=== PATIENT | male | born 1990 | race Caucasian/White ===

== ENCOUNTER 2018-03-28 18:05 | Emergency (ER) | payer MEDICARE, OTHER ==
[~2018-03-28] VITALS: Ht 188 cm; Wt 240.4 kg
[~2018-03-28 18:05] MED LIST: ALPR.5 PO; ALPR1 PO; AMLO10 PO; ANTIANXIETY; ARIP20; BUSP10 PO; Bactrim Ds Tab1 EACH PO; CLON.5 PO; CLON2 PO; DIPH50; HYDCHL50 PO; INVEGA PO; METPHE10; METPHE18ER; PROACE100 PO; SERT50; TRAZ100 PO; TRAZ50; XANAX PO; Zoloft25 MG PO
[2018-03-28] MEDS ORDERED: CRUTCH3 XX (20:44)
== END 2018-03-28 22:02 | disposition home or self-care (01) ==
LOC: ER 18:05
DX: M25.562 Pain in left knee (principal); Z88.8 Allergy status to other drugs, medicaments and biological substances; E66.9 Obesity, unspecified; F90.9 Attention-deficit hyperactivity disorder, unspecified type; F20.9 Schizophrenia, unspecified; F41.9 Anxiety disorder, unspecified; Z68.44 Body mass index [BMI] 60.0-69.9, adult
CPT/HCPCS: 29505; 73560-LT; 96372; 99283; J1885

== ENCOUNTER 2018-03-29 23:02 | Emergency (ER) | payer MEDICARE, OTHER ==
[~2018-03-29] VITALS: Ht 188 cm; Wt 249.5 kg
[~2018-03-29 23:02] MED LIST changes: +CRUTCH3 XX
== END 2018-03-30 00:40 | disposition home or self-care (01) ==
LOC: ER 23:02
DX: M79.605 Pain in left leg (principal); E66.01 Morbid (severe) obesity due to excess calories; Z88.8 Allergy status to other drugs, medicaments and biological substances
CPT/HCPCS: 96372; 99283; J1885

== ENCOUNTER 2018-03-30 17:10 | Observation (INO) | payer MEDICARE, OTHER ==
[~2018-03-30] VITALS: Ht 182.9 cm; Wt 272.2 kg
== END 2018-03-31 13:59 | disposition home or self-care (01) ==
LOC: ER 17:10 → EOR 17:11
DX: S80.02XA Contusion of left knee, initial encounter (principal); E66.01 Morbid (severe) obesity due to excess calories; R45.851 Suicidal ideations; F90.9 Attention-deficit hyperactivity disorder, unspecified type; F42.9 Obsessive-compulsive disorder, unspecified; F25.9 Schizoaffective disorder, unspecified; F41.9 Anxiety disorder, unspecified; Z79.899 Other long term (current) drug therapy; Z68.45 Body mass index [BMI] 70 or greater, adult; W19.XXXA Unspecified fall, initial encounter
CPT/HCPCS: 36415; 96360; 99285; G0378; J7030

== ENCOUNTER 2018-04-09 02:49 | Emergency (ER) | payer MEDICARE, OTHER ==
[~2018-04-09] VITALS: Ht 182.9 cm; Wt 249.5 kg
== END 2018-04-09 04:30 | disposition home or self-care (01) ==
LOC: ER 02:49
DX: S80.02XA Contusion of left knee, initial encounter (principal); E66.01 Morbid (severe) obesity due to excess calories; Z68.45 Body mass index [BMI] 70 or greater, adult; Z88.8 Allergy status to other drugs, medicaments and biological substances; X58.XXXA Exposure to other specified factors, initial encounter
CPT/HCPCS: 73560-LT

== ENCOUNTER 2018-04-20 02:09 | Emergency (ER) | payer MEDICARE, OTHER ==
[~2018-04-20] VITALS: Ht 188 cm; Wt 240.4 kg
[2018-04-20] MEDS ORDERED: Nystatin15 GM TOP (02:24)
== END 2018-04-20 02:51 | disposition home or self-care (01) ==
LOC: ER 02:09
DX: B37.2 Candidiasis of skin and nail (principal); Z88.8 Allergy status to other drugs, medicaments and biological substances; Z79.899 Other long term (current) drug therapy; F90.9 Attention-deficit hyperactivity disorder, unspecified type; F41.9 Anxiety disorder, unspecified
CPT/HCPCS: 99283

== ENCOUNTER 2018-06-12 14:46 | Emergency (ER) | payer MEDICARE, OTHER ==
[~2018-06-12] VITALS: Ht 188 cm; Wt 226.8 kg
[~2018-06-12 14:46] MED LIST changes: +Nystatin15 GM TOP
== END 2018-06-12 20:17 | disposition home or self-care (01) ==
LOC: ER 14:46
DX: M25.562 Pain in left knee (principal); G89.29 Other chronic pain; Z88.8 Allergy status to other drugs, medicaments and biological substances; E66.01 Morbid (severe) obesity due to excess calories; Z68.44 Body mass index [BMI] 60.0-69.9, adult
CPT/HCPCS: 99284

== ENCOUNTER 2020-11-27 19:23 | Emergency (ER) | payer MEDICARE, OTHER ==
[~2020-11-27] VITALS: Ht 185.4 cm; Wt 294.8 kg
[~2020-11-27 19:23] MED LIST changes: +ASPI81CH PO; +AZIT250 PO; +CEPH500 PO; +METO50 PO; +VISBIOME PO
[2020-11-27] MEDS ORDERED: METO50 PO (19:37)
[2020-11-27 20:00] LABS: BASOPHILS ABSOLUTE AUTO 0.02 K/mm3 (0.00-0.23); BASOPHILS PERCENT AUTO 0 % (0-2); EOSINOPHILS ABSOLUTE AUTO 0.31 K/mm3 (0.00-0.68); EOSINOPHILS PERCENT AUTO 3 % (0-6); Hematocrit 46.5 % (37.0-53.0); Hemoglobin 14.5 g/dL (13.5-17.5); IMMATURE GRAN ABSOLUTE AUTO 0.03 K/mm3 (0.00-0.10); IMMATURE GRAN PERCENT AUTO 0 % (0-1); LYMPHOCYTES PERCENT AUTO 21 % (21-46); MONOCYTES ABSOLUTE AUTO 0.86 K/mm3 (0.16-1.47); MONOCYTES PERCENT AUTO 8 % (4-13); Mean Corpuscular HGB 27.9 pg (26.0-34.0); Mean Corpuscular HGB Conc 31.2 g/dL (31.5-36.5); Mean Corpuscular Volume 89 fL (80-100); Mean Platelet Volume 12.1 fL (9.1-12.4); NEUTROPHILS PERCENT AUTO 68 % (41-73); Platelet Count 229 K/mm3 (150-400); RDW Coefficient Variation 13.4 % (11.7-14.2); RDW Standard Deviation 43.8 fL (35.1-46.3); White Blood Cell Count 10.62 K/mm3 (4.00-11.30)
[2020-11-27 20:28] LABS: Alanine Aminotransfer (ALT/SGP 29 U/L (12-78); Albumin, Blood 3.4 g/dL (3.4-5.0); Albumin/Globulin Ratio 0.8 (0.8-1.8); Alk Phos 94 U/L (50-136); Anion Gap 3 mmol/L (6-16); Aspartate Aminotrans (AST/SGOT 12 U/L (12-37); Bilirubin, Total 0.3 mg/dL (0.1-1.0); Blood Urea Nitrogen 13 mg/dL (8-24); Bun/Creatinine Ratio 16.7 (12.0-20.0); CO2, Blood 30 mmol/L (21-32); Calcium, Blood 9.1 mg/dL (8.5-10.1); Chloride, Blood 104 mmol/L (98-108); Creatinine, Blood 0.78 mg/dL (0.60-1.20); Globulin, Blood 4.4 g/dL (2.2-4.0); Glomerular Filtration Rate >60 (60-); Glucose, Blood 99 mg/dL (70-99); Potassium, Blood 4.1 mmol/L (3.5-5.5); Sodium, Blood 137 mmol/L (136-145); Total Protein, Blood 7.8 g/dL (6.4-8.2); Troponin I <0.015 ng/mL (0.000-0.040)
== END 2020-11-27 22:26 | disposition home or self-care (01) ==
LOC: ER 19:23
PROVIDERS: Student in an Organized Health Care Education/Training Program
DX: R07.9 Chest pain, unspecified (principal); Z88.8 Allergy status to other drugs, medicaments and biological substances; Z79.82 Long term (current) use of aspirin
CPT/HCPCS: 36415; 71045; 80053; 84484; 85025; 99285-25; A9270

== ENCOUNTER 2025-02-17 18:07 | Inpatient (IN) | payer MEDICARE, OTHER ==
[~2025-02-17] VITALS: Ht 185.4 cm; Wt 305.3 kg
[2025-02-17] MEDS ORDERED: Acetaminophen650 M1 (18:28)
[2025-02-17] MEDS ORDERED: Lactated Ringer's 1,000 ML IV ONE (18:35)
[2025-02-17] MEDS ORDERED: Acetaminophen 500 MG Tab PO ONE (18:40)
[2025-02-17 19:01] LABS: BASOPHILS ABSOLUTE AUTO 0.03 K/mm3 (0.00-0.23); BASOPHILS PERCENT AUTO 0 % (0-2); EOSINOPHILS ABSOLUTE AUTO 0.01 K/mm3 (0.00-0.68); EOSINOPHILS PERCENT AUTO 0 % (0-6); Hematocrit 43.4 % (37.0-53.0); IMMATURE GRAN PERCENT AUTO 1 % (0-1); LYMPHOCYTES ABSOLUTE AUTO 0.42 K/mm3 (0.84-5.20); LYMPHOCYTES PERCENT AUTO 2 % (21-46); MONOCYTES ABSOLUTE AUTO 0.55 K/mm3 (0.16-1.47); MONOCYTES PERCENT AUTO 3 % (4-13); Mean Corpuscular HGB 27.1 pg (26.0-34.0); Mean Corpuscular HGB Conc 32.3 g/dL (31.5-36.5); Mean Corpuscular Volume 84 fL (80-100); NEUTROPHILS PERCENT AUTO 94 % (41-73); Platelet Count 225 K/mm3 (150-400); RDW Coefficient Variation 14.9 % (11.7-14.2); RDW Standard Deviation 45.4 fL (35.1-46.3); Red Blood Cell Count 5.17 M/mm3 (4.30-5.90); White Blood Cell Count 18.01 K/mm3 (4.00-11.30)
[2025-02-17 19:28] LABS: Albumin, Blood 3.5 g/dL (3.4-5.0); Albumin/Globulin Ratio 0.7 (0.8-1.8); Bilirubin, Total 0.8 mg/dL (0.1-1.0); Bun/Creatinine Ratio 21.7 (12.0-20.0); Calcium, Blood 8.9 mg/dL (8.5-10.1); Creatinine, Blood 0.69 mg/dL (0.60-1.20); Globulin, Blood 4.7 g/dL (2.2-4.0); Potassium, Blood 3.4 mmol/L (3.5-5.5); Total Protein, Blood 8.2 g/dL (6.4-8.2)
[2025-02-17 19:37] LABS: Influenza A, PCR NEGATIVE (NEGATIVE); Influenza B, PCR NEGATIVE (NEGATIVE); Resp Syncytial Virus, PCR NEGATIVE (NEGATIVE); SARS-Cov-2 (COVID-19) PCR, MMC NEGATIVE (NEGATIVE)
[2025-02-17] MEDS ORDERED: CefTRIAXone Sodium 1,000 MG in NS 100 ML IV ONE (21:00)
[2025-02-17] MEDS ORDERED: Azithromycin 250 MG Tab PO ONE (21:00)
[2025-02-17] MEDS ORDERED: Acetaminophen 325 MG TABLET PO PRN (22:15)
[2025-02-17] MEDS ORDERED: NS 1,000 ML IV ONE (22:15)
[2025-02-17] MEDS ORDERED: Ondansetron HCl 2 MG / ML 2ML Vial IV PRN (22:15)
[2025-02-17 22:32] LABS: Source, Urine Clean Catch
[2025-02-17 22:42] LABS: Bilirubin, Urine Neg (Neg); Blood, Urine Neg (Neg); Glucose Qualitative, Urine Neg (Neg); Ketones, Urine 1+ (Neg); Leukocyte Esterase, Urine Neg (Neg); Nitrite, Urine Neg (Neg); Protein, Urine Neg (Neg); Specific Gravity, Urine 1.015 (1.003-1.022); Urobilinogen, Urine NORM (Normal)
[2025-02-17 22:45] LABS: Appearance, Urine Clear (Clear); Color, Urine Yellow (P-Yellow)
[2025-02-17] MEDS ORDERED: Enoxaparin 40 MG/0.4 ML SYR SC SCH (23:00)
[2025-02-17] MEDS ORDERED: MethylPREDNISolone Sod Succ 125 MG Vial IV SCH (23:00)
[2025-02-17] MEDS ORDERED: Potassium Chloride 40 MEQ in NS 250 ML IV ONE (23:20)
[2025-02-18] VITALS (7 sets, daily range): BP systolic 135–152; BP diastolic 51–88
[2025-02-18 02:29] LABS: Hematocrit 40.9 % (37.0-53.0); Hemoglobin 13.2 g/dL (13.5-17.5); Mean Corpuscular HGB Conc 32.3 g/dL (31.5-36.5); Mean Corpuscular Volume 84 fL (80-100); Mean Platelet Volume 11.5 fL (9.1-12.4); Platelet Count 196 K/mm3 (150-400); RDW Coefficient Variation 15.3 % (11.7-14.2); RDW Standard Deviation 46.7 fL (35.1-46.3); Red Blood Cell Count 4.88 M/mm3 (4.30-5.90); White Blood Cell Count 24.25 K/mm3 (4.00-11.30)
[2025-02-18 02:51] LABS: BAND PERCENT MAN 20 % (0-8); BASOPHILS PERCENT MAN 0 % (0-2); EOSINOPHILS PERCENT MAN 0 % (0-6); LYMPHOCYTES ABSOLUTE MAN 0.97 K/mm3 (0.84-5.20); LYMPHOCYTES PERCENT MAN 4 % (21-46); MONOCYTES ABSOLUTE MAN 0.24 K/mm3 (0.16-1.47); MONOCYTES PERCENT MAN 1 % (4-13); NEUTROPHILS ABSOLUTE MAN 23.03 K/mm3 (1.96-9.15); SEG NEUTROPHILS PERCENT MAN 75 % (41-73); TOTAL CELLS COUNTED 100
[2025-02-18 03:59] LABS: Albumin/Globulin Ratio 0.7 (0.8-1.8); Bilirubin, Total 0.7 mg/dL (0.1-1.0); Bun/Creatinine Ratio 17.5 (12.0-20.0); Calcium, Blood 8.6 mg/dL (8.5-10.1); Creatinine, Blood 0.86 mg/dL (0.60-1.20); Globulin, Blood 4.6 g/dL (2.2-4.0); Magnesium, Blood 1.6 mg/dL (1.6-2.4); Potassium, Blood 3.8 mmol/L (3.5-5.5); Total Protein, Blood 7.6 g/dL (6.4-8.2)
--- NOTE | 2025-02-18 04:58 | NUR ---
CARE NOTE PT ARRIVED VIA ED CART TO PCU ROOM 18 VIA ED CART.PT ABLE TO TRANFER SELF WITH ASSIST TO BARIATRIC BED.PT'S BODY PRODUCING MALODOROUS SMELL.PT STATES THAT HE HAS NOT BEEN ABLE TO BATH FOR A LONG TIME.PT'S CLOTHES DIRTY AND APPEARS TO HAVE NOT BEEN WASHED FOR A WHILE.PT GIVEN A COMPLETE BED BATH.SKIN ASSESSMENT COMPLETED.MULTIPLE MOISTURE INDUCED SKIN BREAKDOWN NOTED IN FOLDS OF BILATERAL LOWER EXTREMITIES (LEFT WORSE THAN RIGHT),ARMPITS ,BILATERAL GROINS,GLUTEAL CLEFT.AREAS CLEANED,PICTURES IN CHART.INTERDRY APPLIED TO THE AREAS TO KEEP THE AREAS DRY.NS INFUSING AT 75ML/HR,40MEQ OF KCL IN 250ML OF NS INFUSING AT 50ML/HR STARTED IN ED.SOCIAL WORK CONSULT PLACED TO HELP SET UP FOR HELP WITH CARE AT HOME.PT NEEDS A WOUND CONSULT ORDER.
[2025-02-18] MEDS ORDERED: NS 1,000 ML IV SCH (08:00)
[2025-02-18] MEDS ORDERED: Miconazole Nitrate 2% 85 GM PWD TOP SCH (09:00)
[2025-02-18 14:37] LABS: Adenovirus Not Detected (NOT DETECT); Bordetella pertussis Not Detected (NOT DETECT); Chlamydophila pneumoniae Not Detected (NOT DETECT); Coronavirus 229E Not Detected (NOT DETECT); Coronavirus HKU1 Not Detected (NOT DETECT); Coronavirus NL63 Not Detected (NOT DETECT); Coronavirus OC43 Not Detected (NOT DETECT); Human Metapneumovirus Not Detected (NOT DETECT); Human Rhinovirus/Enterovirus Not Detected (NOT DETECT); Influenza A/2009-H1 Not Detected (NOT DETECT); Influenza A/H1 Not Detected (NOT DETECT); Influenza A/H3 Not Detected (NOT DETECT); Influenza B Not Detected (NOT DETECT); Mycoplasma pneumoniae Not Detected (NOT DETECT); Parainfluenza Virus 1 Not Detected (NOT DETECT); Parainfluenza Virus 2 Not Detected (NOT DETECT); Parainfluenza Virus 3 Not Detected (NOT DETECT); Parainfluenza Virus 4 Not Detected (NOT DETECT); Respiratory Syncytial Virus Not Detected (NOT DETECT); SARS-Cov-2 (COVID-19), BioFire Not Detected (NOT DETECT)
--- NOTE | 2025-02-18 17:36 | NUR ---
SHIFT SUMMARY: A/O X4, PLEASANT AND COOPERATIVE WITH CARE, ANXIOUS AT BASELINE WITH DX OF ASPERGERS, SCHIZO, AND ADHD, ABLE TO COMMUNICATE NEEDS AND USE CALL LIGHT APPROPRIATELY. NSR WITH A BBB, HR 80'S, BLE +4 EDEMA/LYMPHEDEMA, PENDING LAB FOR FILARIASIS. LS CTA ON ANTERIOR ASPECT, WHEEZING NOTED ON POSTERIOR, PRODUCTIVE COUGH WITH THICK CLEAR SPUTUM, SAT >92% ON 2L O2 VIA NC, REFUSED CPAP FOR 02/17/25 NOC, MD BAKER EDUCATED PT ON BENEFITS OF CPAP AND COMPLICATIONS FOR REFUSING, SPUTUM CULTURE NOT COLLECTED THIS SHIFT. USES URINAL IN BED, BODY HABITUS RESTRICTS MOVEMENT. SKIN BREAKDOWN IN ALL FOLDS, MEDICATED WITH NYSTATIN POWDER PER EMAR, AND PACKED WITH DRYING TOWELS.
[2025-02-18] MEDS ORDERED: CefTRIAXone Sodium 1,000 MG in NS 100 ML IV SCH (21:00)
[2025-02-18] MEDS ORDERED: Enoxaparin 40 MG/0.4 ML SYR SC SCH (21:00)
[2025-02-18] MEDS ORDERED: Azithromycin 500 MG in NS 250 ML IV SCH (21:00)
[2025-02-19 00:22] VITALS: BP 145/88
[2025-02-19 04:02] VITALS: BP 151/91
[2025-02-19] MEDS ORDERED: Benzonatate 100 MG Cap PO PRN (04:50)
--- NOTE | 2025-02-19 06:25 | NUR ---
PT STABLE THROUGHOUT SHIFT. VITAL SIGNS WNL. PT TOLERATING IV FLUIDS AND IV ABX WELL. PT C/O HACKING COUGH TOWARD END OF SHIFT AND TESSALON PERLES WERE ORDERED WITH GOOD EFFECT. PT SPUTUM IS CLEAR, THICK, AND MODERATE AMOUNT. PT DID HAVE A LARGE, FORMED, BROWN BM. FOLDS HAVE ANTIFUNGAL POWDER AND INTERDRY SHEETS IN PLACE. PT REMAINS IN SINUS RHYTHM.
[2025-02-19 07:45] LABS: BASOPHILS ABSOLUTE AUTO 0.02 K/mm3 (0.00-0.23); BASOPHILS PERCENT AUTO 0 % (0-2); EOSINOPHILS ABSOLUTE AUTO 0.05 K/mm3 (0.00-0.68); EOSINOPHILS PERCENT AUTO 0 % (0-6); Hematocrit 38.6 % (37.0-53.0); Hemoglobin 12.4 g/dL (13.5-17.5); IMMATURE GRAN ABSOLUTE AUTO 0.05 K/mm3 (0.00-0.10); IMMATURE GRAN PERCENT AUTO 0 % (0-1); LYMPHOCYTES ABSOLUTE AUTO 1.91 K/mm3 (0.84-5.20); LYMPHOCYTES PERCENT AUTO 13 % (21-46); MONOCYTES ABSOLUTE AUTO 0.66 K/mm3 (0.16-1.47); MONOCYTES PERCENT AUTO 5 % (4-13); Mean Corpuscular HGB 27.4 pg (26.0-34.0); Mean Corpuscular HGB Conc 32.1 g/dL (31.5-36.5); Mean Corpuscular Volume 85 fL (80-100); Mean Platelet Volume 12.1 fL (9.1-12.4); NEUTROPHILS ABSOLUTE AUTO 12.14 K/mm3 (1.96-9.15); NEUTROPHILS PERCENT AUTO 82 % (41-73); Platelet Count 175 K/mm3 (150-400); RDW Coefficient Variation 15.7 % (11.7-14.2); RDW Standard Deviation 48.3 fL (35.1-46.3); Red Blood Cell Count 4.53 M/mm3 (4.30-5.90); White Blood Cell Count 14.83 K/mm3 (4.00-11.30)
[2025-02-19 07:59] LABS: Albumin, Blood 2.7 g/dL (3.4-5.0); Albumin/Globulin Ratio 0.6 (0.8-1.8); Bilirubin, Total 0.3 mg/dL (0.1-1.0); Calcium, Blood 8.7 mg/dL (8.5-10.1); Creatinine, Blood 0.61 mg/dL (0.60-1.20); Globulin, Blood 4.5 g/dL (2.2-4.0); Total Protein, Blood 7.2 g/dL (6.4-8.2)
[2025-02-19 08:03] VITALS: BP 140/80
[2025-02-19 11:29] VITALS: BP 167/96
[2025-02-19] MEDS ORDERED: Lidocaine 2% Viscous Soln 20 ML,Nystatin 100,000 Unit/ml Susp 20 ML,Mag Hydrox/Al Hydro... MT PRN (12:05)
--- NOTE | 2025-02-19 13:37 | NUR ---
The pt has been alert and oriented this shift, cooperative with care and readily engaging in conversation about his care. He did request to see a psychiatrist as he feels that he needs to talk with someone about a multitude of issues regarding the loss of his mom and grandmother, anxiety, and isolation. Offer of senior analyst was made but the pt declined, saying he is primarily interested in getting medications to help him. Encouraged the pt to bring this up to his attending MD to make the referral. Pt has been OOB to BSC but says this afternoon that his BMs are starting to be diarrhea. The stools have progressed from soft to liquid. Bananas, apple sauce and dry crackers provided as well as extra p.o. fluids. He worked with PT as well today. continuous oximetry, no supplemental O2 needed.
[2025-02-19] MEDS ORDERED: ZINC OXIDE/PETROLATUM, YELLOW 1 APPLIC/71 GM PASTE TOP PRN (13:55)
[2025-02-19 15:19] VITALS: BP 145/82
--- NOTE | 2025-02-19 15:41 | NUR ---
Pt c/o headache, inablity to sleep due to chest soreness related to coughing. Given tylenol and tesslon perles at this time, as well as german ice he requested.
--- NOTE | 2025-02-19 18:27 | NUR ---
Pt states that he is feeling better. Headache is better, but he is having intermittent pain all over his chest. This seems to be associated with his coughing. He says that the tesslon perles helped his cough. He has also been having some hypoxia, spo2 86% occasionally, while lying in bed, often when he is falling asleep. He was placed on O2 2 l/min for this today when he was trying to nap. He has not been able to sleep today. Plan is for overnight oximetry reattempt this evening.
[2025-02-19 20:43] VITALS: BP 141/92
[2025-02-19] MEDS ORDERED: Lactobacil 2-S.Thermo-Bifido 1 1 Cap PO SCH (21:00)
[2025-02-20 01:04] VITALS: BP 149/83
--- NOTE | 2025-02-20 02:08 | NUR ---
PT TO BE TRANSFERRED TO MEDICAL ROOM 329. REPORT GIVEN TO TYLER CARNES.
--- NOTE | 2025-02-20 02:56 | NUR ---
PT TRANSFERRED WITH ALL BELONGINGS/PAPERWORK AND CHART.
--- NOTE | 2025-02-20 03:22 | NUR ---
SHIFT SUMMARY PATIENT HAS JUST TRANSFERED TO THE MEDICAL FLOOR FROM PCU. HE WAS ACCOMPANIED BY PIPE STEM ALIGNER, BOY WHO ALSO GAVE REPORT. PATIENT ARRIVED IN HIS BARIATRIC BED WITH HIS BELONGINGS. HE IS ALERT AND ORIENTED X4. HE HAS A COUGH. ORIENTED TO THE MEDICAL FLOOR. HE IS RESTING COMFORTABLY AT THIS TIME. HE HAS REQUESTED SOME TEA AND A SANDWHICH. HE HAS HIS CALL LIGHT WITHIN REACH AND HAS AGREED TO CALL WITH ANY REQUESTS OR NEEDS.
[2025-02-20 05:36] LABS: BASOPHILS ABSOLUTE AUTO 0.01 K/mm3 (0.00-0.23); BASOPHILS PERCENT AUTO 0 % (0-2); EOSINOPHILS ABSOLUTE AUTO 0.17 K/mm3 (0.00-0.68); EOSINOPHILS PERCENT AUTO 2 % (0-6); Hematocrit 37.4 % (37.0-53.0); IMMATURE GRAN ABSOLUTE AUTO 0.02 K/mm3 (0.00-0.10); IMMATURE GRAN PERCENT AUTO 0 % (0-1); LYMPHOCYTES PERCENT AUTO 22 % (21-46); MONOCYTES PERCENT AUTO 7 % (4-13); Mean Corpuscular HGB 27.1 pg (26.0-34.0); Mean Corpuscular HGB Conc 32.1 g/dL (31.5-36.5); Mean Corpuscular Volume 85 fL (80-100); Mean Platelet Volume 11.9 fL (9.1-12.4); NEUTROPHILS ABSOLUTE AUTO 6.51 K/mm3 (1.96-9.15); NEUTROPHILS PERCENT AUTO 68 % (41-73); Platelet Count 182 K/mm3 (150-400); RDW Coefficient Variation 15.6 % (11.7-14.2); RDW Standard Deviation 47.9 fL (35.1-46.3); Red Blood Cell Count 4.42 M/mm3 (4.30-5.90); White Blood Cell Count 9.51 K/mm3 (4.00-11.30)
[2025-02-20 05:57] LABS: Bun/Creatinine Ratio 19.9 (12.0-20.0); Calcium, Blood 8.8 mg/dL (8.5-10.1); Creatinine, Blood 0.6 mg/dL (0.60-1.20); Potassium, Blood 3.7 mmol/L (3.5-5.5)
[2025-02-20 07:50] VITALS: BP 160/100
[2025-02-20] MEDS ORDERED: Amoxicillin/Clavulanate K 875 MG Tab PO ONE (14:00)
[2025-02-20] MEDS ORDERED: Acetaminophen325 M1 PO (14:09)
[2025-02-20] MEDS ORDERED: BENZ100A PO (14:10)
[2025-02-20] MEDS ORDERED: VISBIOME 112.51 EACH PO (14:10)
[2025-02-20] MEDS ORDERED: MICONAZOLE NITR85 GM TOP (14:11)
[2025-02-20] MEDS ORDERED: AMOCLA875 PO (14:15)
--- NOTE | 2025-02-20 18:45 | NUR ---
SHIFT SUMMARY AND DISCHARGE PATIENT ALERT AND INTERACTIVE. PATIENT ABLE TO AMBULATE WITH MINIMAL ASSISTANCE. PATIENT DISCHARGE TO HOME. DISCHARGE INSTRUCTIONS REVIEWED WITH PATIENT. POWER GLIDE REMOVED PRIOR TO DISCHARGE. PATIENT ASSISTED TO GET DRESSED AND TRANSPORTED OUT VIA WHEELCHAIR. BELONGINGS SENT WITH PATIENT. ROOM CHECK VERIFIED WITH PATIENT PRIOR TO DISCHARGE.
== END 2025-02-20 15:40 | disposition home health service (06) | DRG 871 ==
LOC: ER 18:07 → ERHOLD 21:09 → PCU 21:09 → MEDS 02-20 02:44
PROVIDERS: Internal Medicine; Student in an Organized Health Care Education/Training Program; ADMIT Internal Medicine
DX: A41.9 Sepsis, unspecified organism (principal); J18.9 Pneumonia, unspecified organism; Z68.45 Body mass index [BMI] 70 or greater, adult; F84.5 Asperger's syndrome; I48.91 Unspecified atrial fibrillation; I10 Essential (primary) hypertension; I89.0 Lymphedema, not elsewhere classified; E66.01 Morbid (severe) obesity due to excess calories; B37.2 Candidiasis of skin and nail; G89.29 Other chronic pain; M54.50 Low back pain, unspecified; E87.6 Hypokalemia; F41.0 Panic disorder [episodic paroxysmal anxiety]; F90.9 Attention-deficit hyperactivity disorder, unspecified type; F25.9 Schizoaffective disorder, unspecified; Z88.8 Allergy status to other drugs, medicaments and biological substances; Z74.01 Bed confinement status
CPT/HCPCS: 0202U; 0241U; 36415; 71045; 80048; 80053; 81003; 83036; 83605; 83735; 83880; 84145; 85025; 87015; 87040; 87207; 87210; 94660; 94761; 94762; 96360; 97112; 97161; 97530; 99284-25; A9270; C1751; J0456; J0696; J1650; J2919; J3480; J7030; J7050; J7120

== ENCOUNTER 2025-05-10 00:51 | Inpatient (IN) | payer MEDICARE, OTHER ==
[~2025-05-10] VITALS: Ht 188 cm; Wt 311.7 kg
[2025-05-10] VITALS (8 sets, daily range): BP systolic 137–162; BP diastolic 70–91
[~2025-05-10 00:51] MED LIST changes: +AMOCLA875 PO; +Acetaminophen325 M1 PO; +Acetaminophen650 M1; +BENZ100A PO; +MICONAZOLE NITR85 GM TOP; +VISBIOME 112.51 EACH PO
[2025-05-10 02:13] LABS: BASOPHILS ABSOLUTE AUTO 0.02 K/mm3 (0.00-0.23); BASOPHILS PERCENT AUTO 0 % (0-2); EOSINOPHILS ABSOLUTE AUTO 0.30 K/mm3 (0.00-0.68); EOSINOPHILS PERCENT AUTO 3 % (0-6); Hematocrit 46.0 % (37.0-53.0); Hemoglobin 14.8 g/dL (13.5-17.5); IMMATURE GRAN ABSOLUTE AUTO 0.03 K/mm3 (0.00-0.10); IMMATURE GRAN PERCENT AUTO 0 % (0-1); LYMPHOCYTES ABSOLUTE AUTO 2.09 K/mm3 (0.84-5.20); LYMPHOCYTES PERCENT AUTO 22 % (21-46); MONOCYTES ABSOLUTE AUTO 0.68 K/mm3 (0.16-1.47); MONOCYTES PERCENT AUTO 7 % (4-13); Mean Corpuscular HGB Conc 32.2 g/dL (31.5-36.5); Mean Corpuscular Volume 85 fL (80-100); NEUTROPHILS ABSOLUTE AUTO 6.26 K/mm3 (1.96-9.15); NEUTROPHILS PERCENT AUTO 67 % (41-73); NRBC ABSOLUTE 0.00 K/mm3 (0.00-0.02); NRBC Auto 0.0 /100 WBC (0.0-0.2); Platelet Count 227 K/mm3 (150-400); RDW Coefficient Variation 15.3 % (11.7-14.2); RDW Standard Deviation 47.9 fL (35.1-46.3)
[2025-05-10] MEDS ORDERED: Diltiazem HCl 5 MG / ML 5ML Vial IV ONE ×2 (02:15→03:20)
[2025-05-10 02:46] LABS: Anion Gap 8.0 mmol/L (3-11); Blood Urea Nitrogen 11.0 mg/dL (8-24); CO2, Blood 27.0 mmol/L (21-32); Calcium, Blood 8.7 mg/dL (8.5-10.1); Chloride, Blood 106.0 mmol/L (98-108); Creatinine, Blood 0.9 mg/dL (0.60-1.20); Glucose, Blood 92.0 mg/dL (70-99); Magnesium, Blood 2.1 mg/dL (1.6-2.4); Potassium, Blood 4.0 mmol/L (3.5-5.5); Sodium, Blood 137.0 mmol/L (136-145); Thyroid Stimulating Hormone 1.77 uIU/mL (0.360-4.800)
[2025-05-10] MEDS ORDERED: Ondansetron HCl 2 MG / ML 2ML Vial IV PRN (04:30)
[2025-05-10] MEDS ORDERED: Alprazolam ER2 MG PO (04:55)
--- NOTE | 2025-05-10 06:49 | NUR ---
PT ARRIVED @ 0600. PT WAS ABLE TO TRANSFER TO BED FROM STRETCHER WITH STAND PIVOT WITH 2 ASSIST. PT VERY PLEASANT. A&OX4. PT ARRIVED ON DILT GTT @ 15. ON TELE AFIB WITH RVR 100-120s. BPs WNL. ON RA >96%. NO SOB @ REST. PT VERBALLY TELLING THIS NURSE THAT HE HAS OPEN WOUNDS ON BOTTOM AND SCROTUM. NOT ABLE TO VISUALIZE AT THIS TIME.
[2025-05-10] MEDS ORDERED: Diltiazem HCl 180 MG Cap.CD PO SCH (09:00)
[2025-05-10] MEDS ORDERED: Enoxaparin 40 MG/0.4 ML SYR SC SCH (09:00)
--- NOTE | 2025-05-10 10:04 | NUR ---
0751 AFIB TO SR CONVERSION PT ON AFIB 15GTT, THERAPY DIRECTOR CALLS STATING PT CONVERTED TO SR. TALKED TO DR VARMA- MASOUD FOR PO DILTIAZEM INITIATION. BEGINNING TITRATION DOWN OF CARDIZEM GTT. BP STABLE.
--- NOTE | 2025-05-10 14:34 | NUR ---
ASSUMPTION OF CARE ASSUMED CARE OF PT @0700. PT AXO4. AMBULATORY. ON DILT GTT @15MG. HAS BEEN TITRATED OFF AND SWITCHED TO PO DILT AFTER CONVERTING TO SR. FULL BED BATH COMPLETED. PT RESTING IN BED OFF AND ON. TOLERATING PO INTAKE WELL. USING CALL LIGHT APPROPRIATELY.
--- NOTE | 2025-05-10 17:08 | NUR ---
SUMMARY SEE ASSUMPTION NOTE. NO ACUTE CHANGES POST ASSUMPTION. REMAINS IN SR. DILT GTT OFF, PO DILT INITIATED. VSS EXCEPT BASELINE HTN <160SBP. PT HAD WALKER DELIVERED. PLAN TO DC POSSIBLE TOMORROW FOLLOWING ECHOCARDIOGRAM RESULTS AND OBSERVATION WITH DILTIAZEM THERAPY. PT AWARE OF THIS. CALL LIGHT WITHIN REACH.
[2025-05-11 03:27] VITALS: BP 154/88
[2025-05-11 04:55] LABS: BASOPHILS ABSOLUTE AUTO 0.02 K/mm3 (0.00-0.23); BASOPHILS PERCENT AUTO 0 % (0-2); EOSINOPHILS ABSOLUTE AUTO 0.28 K/mm3 (0.00-0.68); EOSINOPHILS PERCENT AUTO 4 % (0-6); Hematocrit 39.3 % (37.0-53.0); Hemoglobin 12.6 g/dL (13.5-17.5); IMMATURE GRAN ABSOLUTE AUTO 0.02 K/mm3 (0.00-0.10); IMMATURE GRAN PERCENT AUTO 0 % (0-1); LYMPHOCYTES ABSOLUTE AUTO 2.72 K/mm3 (0.84-5.20); LYMPHOCYTES PERCENT AUTO 36 % (21-46); MONOCYTES ABSOLUTE AUTO 0.63 K/mm3 (0.16-1.47); MONOCYTES PERCENT AUTO 8 % (4-13); Mean Corpuscular HGB Conc 32.1 g/dL (31.5-36.5); Mean Corpuscular Volume 86 fL (80-100); NEUTROPHILS ABSOLUTE AUTO 3.92 K/mm3 (1.96-9.15); NEUTROPHILS PERCENT AUTO 52 % (41-73); NRBC ABSOLUTE 0.00 K/mm3 (0.00-0.02); NRBC Auto 0.0 /100 WBC (0.0-0.2); Platelet Count 203 K/mm3 (150-400); RDW Coefficient Variation 15.8 % (11.7-14.2); RDW Standard Deviation 49.4 fL (35.1-46.3)
--- NOTE | 2025-05-11 05:09 | NUR ---
SHIFT SUMMARY PT ALERT AND ORIENTED X 4. PT REMAINED IN NSR WITH HR IN 80S. PT'S BP SLIGHTLY ELEVATED. VSS. PT ON ROOM AIR WITH CLEAR LUNG SOUNDS. PT UP TO BATHROOM WITH STANDBY ASSIST. PT ABLE TO SHIFT POSISTIONS IN BED INDEPENDENTLY. PT ABLE TO MAKE NEEDS KNOWN AND CALL SAUNDERS IN REACH. PT IN NAD. POTENTIALLY WILL DISCHARGE TODAY-MADE NEED CASE MANAGEMENT ASSISTANCE WITH RIDES/MEDS.
[2025-05-11 05:20] LABS: Anion Gap 4.0 mmol/L (3-11); Blood Urea Nitrogen 11.0 mg/dL (8-24); CO2, Blood 33.0 mmol/L (21-32); Calcium, Blood 8.9 mg/dL (8.5-10.1); Chloride, Blood 104.0 mmol/L (98-108); Creatinine, Blood 0.73 mg/dL (0.60-1.20); Glucose, Blood 104.0 mg/dL (70-99); Potassium, Blood 3.7 mmol/L (3.5-5.5); Sodium, Blood 137.0 mmol/L (136-145)
[2025-05-11 07:21] VITALS: BP 132/78
[2025-05-11] MEDS ORDERED: ELIQUIS5 M2 PO (10:54)
[2025-05-11] MEDS ORDERED: DILT180 PO (10:54)
[2025-05-11 12:07] VITALS: BP 152/97
[2025-05-11 16:47] VITALS: BP 154/91
== END 2025-05-11 19:00 | disposition home or self-care (01) | DRG 309 ==
LOC: ER 00:51 → PCU 04:28
PROVIDERS: Emergency Medicine; Student in an Organized Health Care Education/Training Program; ADMIT Student in an Organized Health Care Education/Training Program
PROC: 5A2204Z Restoration of Cardiac Rhythm, Single (ICD-10-PCS; principal; 2025-05-10)
DX: I48.0 Paroxysmal atrial fibrillation (principal); F84.5 Asperger's syndrome; Z68.45 Body mass index [BMI] 70 or greater, adult; E66.01 Morbid (severe) obesity due to excess calories; I11.0 Hypertensive heart disease with heart failure; F25.9 Schizoaffective disorder, unspecified; F41.1 Generalized anxiety disorder; F90.9 Attention-deficit hyperactivity disorder, unspecified type; I89.0 Lymphedema, not elsewhere classified; I50.9 Heart failure, unspecified; Z88.8 Allergy status to other drugs, medicaments and biological substances
CPT/HCPCS: 71045; 80048; 83735; 84439; 84443; 84484; 85025; 93005; 93010; 96374; 97110; 97161; 97165; 97530; 99285-25; A9270; C8929; J1650; Q9957

== ENCOUNTER → 2025-07-30 | Outpatient (CLI) | payer MEDICARE, OTHER ==
[~2025-07-30] MED LIST changes: +Alprazolam ER2 MG PO; +DILT180 PO; +ELIQUIS5 M2 PO
== END ==
LOC: LAB 17:12 → LAB SHORT 17:12
DX: R68.82 Decreased libido (principal); R53.83 Other fatigue
CPT/HCPCS: 84403

== ENCOUNTER 2025-08-04 07:18 | Inpatient (IN) | payer MEDICARE, OTHER ==
[~2025-08-04] VITALS: Ht 185.4 cm; Wt 308.8 kg
[2025-08-04] MEDS ORDERED: ATOMOXETINE HCL40 M3 PO (08:10)
[2025-08-04] MEDS ORDERED: ALPRAZOLAM2 M1 PO (08:11)
[2025-08-04 08:28] LABS: BASOPHILS ABSOLUTE AUTO 0.01 K/mm3 (0.00-0.23); BASOPHILS PERCENT AUTO 0 % (0-2); EOSINOPHILS ABSOLUTE AUTO 0.08 K/mm3 (0.00-0.68); EOSINOPHILS PERCENT AUTO 1 % (0-6); Hematocrit 41.5 % (37.0-53.0); Hemoglobin 13.8 g/dL (13.5-17.5); IMMATURE GRAN ABSOLUTE AUTO 0.02 K/mm3 (0.00-0.10); IMMATURE GRAN PERCENT AUTO 0 % (0-1); LYMPHOCYTES ABSOLUTE AUTO 0.67 K/mm3 (0.84-5.20); LYMPHOCYTES PERCENT AUTO 5 % (21-46); MONOCYTES ABSOLUTE AUTO 0.67 K/mm3 (0.16-1.47); MONOCYTES PERCENT AUTO 5 % (4-13); Mean Corpuscular HGB Conc 33.3 g/dL (31.5-36.5); Mean Corpuscular Volume 83 fL (80-100); NEUTROPHILS ABSOLUTE AUTO 11.48 K/mm3 (1.96-9.15); NEUTROPHILS PERCENT AUTO 89 % (41-73); NRBC ABSOLUTE 0.00 K/mm3 (0.00-0.02); NRBC Auto 0.0 /100 WBC (0.0-0.2); Platelet Count 183 K/mm3 (150-400); RDW Coefficient Variation 15.2 % (11.7-14.2); RDW Standard Deviation 46.0 fL (35.1-46.3)
[2025-08-04 08:39] LABS: Influenza A, PCR NEGATIVE (NEGATIVE); Influenza B, PCR NEGATIVE (NEGATIVE); Resp Syncytial Virus, PCR NEGATIVE (NEGATIVE); SARS-Cov-2 (COVID-19) PCR, MMC NEGATIVE (NEGATIVE)
[2025-08-04 08:42] LABS: Alanine Aminotransfer (ALT/SGP 23.0 U/L (12-78); Albumin, Blood 3.2 g/dL (3.4-5.0); Albumin/Globulin Ratio 0.8 (0.8-1.8); Anion Gap 8.0 mmol/L (3-11); Aspartate Aminotrans (AST/SGOT 13.0 U/L (12-37); Bilirubin, Total 0.5 mg/dL (0.1-1.0); Blood Urea Nitrogen 14.0 mg/dL (8-24); CO2, Blood 29.0 mmol/L (21-32); Calcium, Blood 8.9 mg/dL (8.5-10.1); Chloride, Blood 102.0 mmol/L (98-108); Creatinine, Blood 0.76 mg/dL (0.60-1.20); Globulin, Blood 4.2 g/dL (2.2-4.0); Glucose, Blood 107.0 mg/dL (70-99); Potassium, Blood 3.7 mmol/L (3.5-5.5); Sodium, Blood 135.0 mmol/L (136-145); Total Protein, Blood 7.4 g/dL (6.4-8.2)
[2025-08-04] MEDS ORDERED: Ketorolac Tromethamine 15mg Vial IV ONE (09:10)
[2025-08-04] MEDS ORDERED: CefTRIAXone Sodium 1,000 MG in NS 100 ML IV ONE (09:10)
[2025-08-04] MEDS ORDERED: NS 1,000 ML IV SCH (09:10)
[2025-08-04 09:17] LABS: Source, Urine Clean Catch
[2025-08-04 09:30] LABS: Bilirubin, Urine Neg (Neg); Color, Urine Yellow (P-Yellow); Glucose Qualitative, Urine Neg (Neg); Ketones, Urine Neg (Neg); Leukocyte Esterase, Urine Neg (Neg); Protein, Urine Neg (Neg); Specific Gravity, Urine 1.015 (1.003-1.022); Urobilinogen, Urine NORM (Normal)
[2025-08-04] MEDS ORDERED: FLU VACC TS2025-26(6MOS UP)/PF 45 MCG/0.5 ML SYRINGE IM SCH (11:10)
[2025-08-04] MEDS ORDERED: Ondansetron HCl 2 MG / ML 2ML Vial IV PRN (11:10)
[2025-08-04] MEDS ORDERED: Ketorolac Tromethamine 15mg Vial IV PRN (11:30)
[2025-08-04] MEDS ORDERED: Atomoxetine HCL 40 MG Cap PO SCH (12:00)
[2025-08-04] MEDS ORDERED: Diltiazem HCl 180 MG Cap.CD PO SCH (12:00)
[2025-08-04] MEDS ORDERED: Miconazole Nitrate 2% 85 GM PWD TOP SCH (14:00)
[2025-08-04 14:08] VITALS: BP 145/76
[2025-08-04 17:00] VITALS: BP 122/57
[2025-08-04 20:45] VITALS: BP 151/82
[2025-08-04] MEDS ORDERED: Lactobacil 2-S.Thermo-Bifido 1 1 Cap PO SCH (21:00)
[2025-08-05 03:50] VITALS: BP 142/77
[2025-08-05 04:51] LABS: BASOPHILS ABSOLUTE AUTO 0.01 K/mm3 (0.00-0.23); BASOPHILS PERCENT AUTO 0 % (0-2); EOSINOPHILS ABSOLUTE AUTO 0.08 K/mm3 (0.00-0.68); EOSINOPHILS PERCENT AUTO 1 % (0-6); Hematocrit 41.5 % (37.0-53.0); Hemoglobin 13.4 g/dL (13.5-17.5); IMMATURE GRAN ABSOLUTE AUTO 0.03 K/mm3 (0.00-0.10); IMMATURE GRAN PERCENT AUTO 1 % (0-1); LYMPHOCYTES ABSOLUTE AUTO 1.15 K/mm3 (0.84-5.20); LYMPHOCYTES PERCENT AUTO 20 % (21-46); MONOCYTES ABSOLUTE AUTO 0.54 K/mm3 (0.16-1.47); MONOCYTES PERCENT AUTO 10 % (4-13); Mean Corpuscular HGB Conc 32.3 g/dL (31.5-36.5); Mean Corpuscular Volume 84 fL (80-100); NEUTROPHILS ABSOLUTE AUTO 3.85 K/mm3 (1.96-9.15); NEUTROPHILS PERCENT AUTO 68 % (41-73); NRBC ABSOLUTE 0.00 K/mm3 (0.00-0.02); NRBC Auto 0.0 /100 WBC (0.0-0.2); Platelet Count 158 K/mm3 (150-400); RDW Coefficient Variation 15.8 % (11.7-14.2); RDW Standard Deviation 47.9 fL (35.1-46.3)
--- NOTE | 2025-08-05 05:15 | NUR ---
SHIFT SUMMARY: PT AOX4, IND WITH URINAL. PT PLEASANT, CALLS APPROPRIATELY, ABLE TO MAKE NEEDS KNOWN, COOPERATIVE IN CARE. PT DENIES CP OR SOB. TOLERATING MEDICATIONS WELL. PT IN BED RESTING, BED IN LOWEST POSITION, CALL LIGHT IN REACH. CONTINUING CARE.
[2025-08-05 05:22] LABS: Alanine Aminotransfer (ALT/SGP 20.0 U/L (12-78); Albumin, Blood 2.9 g/dL (3.4-5.0); Albumin/Globulin Ratio 0.7 (0.8-1.8); Anion Gap 7.0 mmol/L (3-11); Aspartate Aminotrans (AST/SGOT 14.0 U/L (12-37); Bilirubin, Total 0.4 mg/dL (0.1-1.0); Blood Urea Nitrogen 12.0 mg/dL (8-24); CO2, Blood 28.0 mmol/L (21-32); Calcium, Blood 8.8 mg/dL (8.5-10.1); Chloride, Blood 104.0 mmol/L (98-108); Creatinine, Blood 0.71 mg/dL (0.60-1.20); Globulin, Blood 4.2 g/dL (2.2-4.0); Glucose, Blood 120.0 mg/dL (70-99); Potassium, Blood 3.5 mmol/L (3.5-5.5); Sodium, Blood 135.0 mmol/L (136-145); Total Protein, Blood 7.1 g/dL (6.4-8.2)
[2025-08-05 07:43] VITALS: BP 148/79
[2025-08-05] MEDS ORDERED: NS 250 ML IV PRN (08:40)
[2025-08-05] MEDS ORDERED: CefTRIAXone Sodium 1,000 MG in NS 100 ML IV SCH (09:00)
[2025-08-05] MEDS ORDERED: Enoxaparin 40 MG/0.4 ML SYR SC SCH (09:00)
--- NOTE | 2025-08-05 09:12 | NUR ---
IV ACCESS PT RIGHT UE 20G DOES NOT FLUSH. REQUESTED A POWER GLIDE FOR PT. CARE ONGOING.
--- NOTE | 2025-08-05 15:11 | NUR ---
[facility] CALLED. THEY DO NOT HAVE A BSC OR SHOWER CHAIR WITH PT 700 POUND WEIGHT CAPACITY AVAILABLE. THE REP. IS GOING TO CALL "AROUND" AND SEE IF OTHER NETWORK MAY HAVE SOMETHING. CARE ONGOING.
[2025-08-05 16:09] VITALS: BP 148/93
--- NOTE | 2025-08-05 18:03 | NUR ---
NOTE PT ALERT, COOPERATIVE ABLE TO MAKE NEEDS KNOWN. BARIATRIC BED. HE WAS ABLE TO STAND AND USE THE STANDINF SCALE. [facility] HAS NOT CALLED BACK WITH A BARIATRIC CHAIR HIS WEIGHT. VSS. SKIN CARE DONE TO FOLDS. USING URINAL. RED LE RED, HOT AND TENDER. HE HAS REFUSED PAIN MEDICATION. LEFT UE POWER GLIDE PATENT. CARE ONGOING.
[2025-08-05 19:50] VITALS: BP 144/75
--- NOTE | 2025-08-06 04:38 | NUR ---
SHIFT SUMMARY: PT AOX4, UP WITH 1PA IND WITH URINAL IN ROOM. PT CALLS APPROPRAITELY AND ABLE TO MAKE NEEDS KNOWN. HIGH APPETITE. HAD SOME PAIN AND DISCOMFORT MEDICATED PER EMR. TOLERATING MEDICATIONS WELL. NO ACUTE OVERNIGHT EVENTS. PT IN BED RESTING, BED IN LOWEST POSITION, CALL LIGHT IN REACH. CONTINUING CARE.
[2025-08-06 05:32] VITALS: BP 127/74
[2025-08-06 07:23] VITALS: BP 141/76
[2025-08-06] MEDS ORDERED: ACET500 PO (15:02)
[2025-08-06] MEDS ORDERED: VISBIOME 112.51 EACH PO (15:02)
[2025-08-06] MEDS ORDERED: AMOCLA875 PO (15:02)
--- NOTE | 2025-08-06 16:54 | NUR ---
DISCHARGE NOTE PATIENT A/OX4, ABLE TO MAKE NEEDS KNOWN. PLEASANT AND COOPERATIVE WITH CARE. PATIENT ABLE TO HAVE SHOWER THIS AFTERNOON PRIOR TO DISCHARGE. POWERGLIDE REMOVED TO LEFT UPPER ARM, PATIENT TOELRATED WELL. IV ABX INFUSED THIS AM. DISCHARGE INSTRUCTIONS DISCUSSED WITH PATIENT AND PATIENT AGREEABLE TO PLAN. NEW MEDICATIONS FAXED TO [facility] PER PATIENT REQUEST. NO OTHER CONCERNS. PATIENT ABLE TO TRANSFER TO WHEELCHAIR AND WAS ASSISTED TO FAMILY VEHICLE BY [facility] STAFF. NO OTHER CONCERNS.
== END 2025-08-06 17:17 | disposition home health service (06) | DRG 872 ==
LOC: ER 07:18 → MEDS 07:19 → ER 07:19 → MEDS 13:44
PROVIDERS: Student in an Organized Health Care Education/Training Program; ADMIT Internal Medicine
DX: A41.9 Sepsis, unspecified organism (principal); E87.1 Hypo-osmolality and hyponatremia; L03.115 Cellulitis of right lower limb; Z68.45 Body mass index [BMI] 70 or greater, adult; M54.50 Low back pain, unspecified; G89.29 Other chronic pain; F25.9 Schizoaffective disorder, unspecified; F41.9 Anxiety disorder, unspecified; F90.9 Attention-deficit hyperactivity disorder, unspecified type; I10 Essential (primary) hypertension; E66.01 Morbid (severe) obesity due to excess calories; I89.0 Lymphedema, not elsewhere classified; I48.0 Paroxysmal atrial fibrillation; Z96.22 Myringotomy tube(s) status; Z79.01 Long term (current) use of anticoagulants; Z79.899 Other long term (current) drug therapy; Z98.890 Other specified postprocedural states; Z88.8 Allergy status to other drugs, medicaments and biological substances; Z91.0120 Allergy to eggs, unspecified
CPT/HCPCS: 36415; 71045; 80053; 81003; 83605; 85025; 87637; 93005; 93010; 93971; 96365; 96366; 96375; 96376; 99285-25; A9270; G0378; J0696; J1885; J2470; J7030

== ENCOUNTER 2025-10-19 10:23 | Inpatient (IN) | payer MEDICARE, OTHER ==
[~2025-10-19] VITALS: Ht 185.4 cm; Wt 308.4 kg
[~2025-10-19 10:23] MED LIST changes: +ACET500 PO; +ALPRAZOLAM2 M1 PO; +ATOMOXETINE HCL40 M3 PO
[2025-10-19] MEDS ORDERED: Ondansetron HCl 2 MG / ML 2ML Vial IV PRN (10:50)
[2025-10-19 11:07] LABS: Source, Urine Clean Catch
[2025-10-19 11:13] LABS: BASOPHILS ABSOLUTE AUTO 0.03 K/mm3 (0.00-0.23); BASOPHILS PERCENT AUTO 0 % (0-2); EOSINOPHILS ABSOLUTE AUTO 0.01 K/mm3 (0.00-0.68); EOSINOPHILS PERCENT AUTO 0 % (0-6); Hematocrit 39.5 % (37.0-53.0); Hemoglobin 12.9 g/dL (13.5-17.5); IMMATURE GRAN ABSOLUTE AUTO 0.17 K/mm3 (0.00-0.10); IMMATURE GRAN PERCENT AUTO 1 % (0-1); LYMPHOCYTES ABSOLUTE AUTO 0.42 K/mm3 (0.84-5.20); LYMPHOCYTES PERCENT AUTO 2 % (21-46); MONOCYTES ABSOLUTE AUTO 0.88 K/mm3 (0.16-1.47); MONOCYTES PERCENT AUTO 4 % (4-13); Mean Corpuscular HGB Conc 32.7 g/dL (31.5-36.5); Mean Corpuscular Volume 84 fL (80-100); NEUTROPHILS ABSOLUTE AUTO 19.21 K/mm3 (1.96-9.15); NEUTROPHILS PERCENT AUTO 93 % (41-73); NRBC ABSOLUTE 0.00 K/mm3 (0.00-0.02); NRBC Auto 0.0 /100 WBC (0.0-0.2); Platelet Count 177 K/mm3 (150-400); RDW Coefficient Variation 15.1 % (11.7-14.2); RDW Standard Deviation 46.3 fL (35.1-46.3)
[2025-10-19 11:13] LABS: Bilirubin, Urine Neg (Neg); Glucose Qualitative, Urine Neg (Neg); Ketones, Urine Neg (Neg); Leukocyte Esterase, Urine Neg (Neg); Protein, Urine 1+ (Neg); Specific Gravity, Urine 1.010 (1.003-1.022); Urobilinogen, Urine NORM (Normal)
[2025-10-19 11:21] LABS: Color, Urine Pale Yellow (P-Yellow)
[2025-10-19 11:30] LABS: Alanine Aminotransfer (ALT/SGP 19.0 U/L (12-78); Albumin, Blood 2.9 g/dL (3.4-5.0); Albumin/Globulin Ratio 0.7 (0.8-1.8); Anion Gap 7.0 mmol/L (3-11); Aspartate Aminotrans (AST/SGOT 20.0 U/L (12-37); Bilirubin, Total 0.7 mg/dL (0.1-1.0); Blood Urea Nitrogen 18.0 mg/dL (8-24); CO2, Blood 27.0 mmol/L (21-32); Calcium, Blood 8.9 mg/dL (8.5-10.1); Chloride, Blood 102.0 mmol/L (98-108); Creatinine, Blood 0.77 mg/dL (0.60-1.20); Globulin, Blood 4.2 g/dL (2.2-4.0); Glucose, Blood 115.0 mg/dL (70-99); Potassium, Blood 3.3 mmol/L (3.5-5.5); Sodium, Blood 133.0 mmol/L (136-145); Total Protein, Blood 7.1 g/dL (6.4-8.2)
[2025-10-19] MEDS ORDERED: CeFAZolin Sodium 2,000 MG in NS 100 ML IV ONE (12:00)
[2025-10-19 12:47] LABS: Influenza A, PCR NEGATIVE (NEGATIVE); Influenza B, PCR NEGATIVE (NEGATIVE); Resp Syncytial Virus, PCR NEGATIVE (NEGATIVE); SARS-Cov-2 (COVID-19) PCR, MMC NEGATIVE (NEGATIVE)
[2025-10-19] MEDS ORDERED: FLU VACC TS2025-26(6MOS UP)/PF 45 MCG/0.5 ML SYRINGE IM SCH (13:35)
[2025-10-19 17:35] VITALS: BP 132/57
[2025-10-19] MEDS ORDERED: HYDCHL50 PO (17:35)
[2025-10-19] MEDS ORDERED: CeFAZolin Sodium 2,000 MG in NS 100 ML IV SCH (18:00)
[2025-10-19] MEDS ORDERED: NS 250 ML IV PRN (18:35)
[2025-10-19 19:35] VITALS: BP 175/80
--- NOTE | 2025-10-19 19:44 | NUR ---
Admission Note Mr Acosta was admitted to medical floor from ER at 1730 on bariatric bed. Unable to get bed weight at time of admission D/T bed wt function not working. Mr Acosta is orientated x4. He denies feeling short of breath, no cough. He was able to turn onto his side for skin assessment with assistance. Photographs taken with pt permission of lymphodema/some scratches on legs, old pilonidal cyst with small open area. c/o 5/10 headache and 3/10 chronic lower back pain. He is currently on bedrest, and reports feeling dizzy and unsteady when he was ambulating earlier today. Mr Acosta lives with his cousin and walks around at home sometimes using a cane. He has home health to assist with bathing/dressing. Bed low, call light in reach.
[2025-10-19] MEDS ORDERED: Lactobacil 2-S.Thermo-Bifido 1 1 Cap PO SCH (21:00)
[2025-10-19 21:55] VITALS: BP 171/87
[2025-10-20 00:15] VITALS: BP 141/65
[2025-10-20 03:50] VITALS: BP 140/69
[2025-10-20 05:53] LABS: BASOPHILS ABSOLUTE AUTO 0.02 K/mm3 (0.00-0.23); BASOPHILS PERCENT AUTO 0 % (0-2); EOSINOPHILS ABSOLUTE AUTO 0.00 K/mm3 (0.00-0.68); EOSINOPHILS PERCENT AUTO 0 % (0-6); Hematocrit 39.0 % (37.0-53.0); Hemoglobin 12.7 g/dL (13.5-17.5); IMMATURE GRAN ABSOLUTE AUTO 0.04 K/mm3 (0.00-0.10); IMMATURE GRAN PERCENT AUTO 0 % (0-1); LYMPHOCYTES ABSOLUTE AUTO 0.49 K/mm3 (0.84-5.20); LYMPHOCYTES PERCENT AUTO 4 % (21-46); MONOCYTES ABSOLUTE AUTO 0.13 K/mm3 (0.16-1.47); MONOCYTES PERCENT AUTO 1 % (4-13); Mean Corpuscular HGB Conc 32.6 g/dL (31.5-36.5); Mean Corpuscular Volume 85 fL (80-100); NEUTROPHILS ABSOLUTE AUTO 13.48 K/mm3 (1.96-9.15); NEUTROPHILS PERCENT AUTO 95 % (41-73); NRBC ABSOLUTE 0.00 K/mm3 (0.00-0.02); NRBC Auto 0.0 /100 WBC (0.0-0.2); Platelet Count 150 K/mm3 (150-400); RDW Coefficient Variation 15.7 % (11.7-14.2); RDW Standard Deviation 48.9 fL (35.1-46.3)
[2025-10-20 06:24] LABS: Alanine Aminotransfer (ALT/SGP 23.0 U/L (12-78); Albumin, Blood 2.7 g/dL (3.4-5.0); Albumin/Globulin Ratio 0.6 (0.8-1.8); Anion Gap 7.0 mmol/L (3-11); Aspartate Aminotrans (AST/SGOT 22.0 U/L (12-37); Bilirubin, Total 0.6 mg/dL (0.1-1.0); Blood Urea Nitrogen 13.0 mg/dL (8-24); CO2, Blood 28.0 mmol/L (21-32); Calcium, Blood 8.4 mg/dL (8.5-10.1); Chloride, Blood 102.0 mmol/L (98-108); Creatinine, Blood 0.79 mg/dL (0.60-1.20); Globulin, Blood 4.2 g/dL (2.2-4.0); Glucose, Blood 125.0 mg/dL (70-99); Potassium, Blood 3.1 mmol/L (3.5-5.5); Sodium, Blood 134.0 mmol/L (136-145); Total Protein, Blood 6.9 g/dL (6.4-8.2)
--- NOTE | 2025-10-20 06:44 | NUR ---
SHIFT SUMMARY Patient alert and oriented x4, although drowsy at times, and is able to make needs known. Patient has been cooperative with care, and no acute change has been observed in this shift. Patient complained of pain and was medicated per the eMAR. Patient was able to eat and stated he is feeling better. Patient was repositioned using the lift. Safety measures are in place: the bed is locked, in the lowest position, and the call light is within reach.
[2025-10-20 07:36] VITALS: BP 147/70
[2025-10-20] MEDS ORDERED: Potassium Chloride 10 Meq Tablet SA PO ONE ×2 (08:50→11:20)
[2025-10-20] MEDS ORDERED: Enoxaparin 40 MG/0.4 ML SYR SC SCH (09:00)
[2025-10-20] MEDS ORDERED: Diltiazem HCl 180 MG Cap.CD PO SCH (11:00)
[2025-10-20] MEDS ORDERED: Atomoxetine HCL 40 MG Cap PO SCH (12:00)
[2025-10-20 15:14] VITALS: BP 151/82
--- NOTE | 2025-10-20 19:28 | NUR ---
DAY SHIFT SUMMARY: NO ACUTE EVENTS TO REPORT THIS SHIFT. PT A&O; CALM AND COOPERATIVE WITH CARE. MEDICATED FOR HEADACHE PAIN PER EMAR. BARIATRIC PATIENT; LIFT PATIENT; ABLE TO TURN WITH 2-ASSIST. IV ABX CONTINUING. REPORT GIVEN TO ONCOMING RN.
[2025-10-20 19:55] VITALS: BP 152/93
[2025-10-21 04:24] VITALS: BP 152/89
[2025-10-21 07:15] VITALS: BP 163/84
--- NOTE | 2025-10-21 07:44 | NUR ---
SHIFT SUMMARY Patient is A&O x4; able to make needs known. The patient was cooperative with care, and no acute change was observed this shift. The patient self-repositioned. Safety measures are in place (bed locked, in the lowest position, and the call light is within reach).
[2025-10-21 09:04] LABS: Hematocrit 39.9 % (37.0-53.0); Hemoglobin 13.0 g/dL (13.5-17.5); Mean Corpuscular HGB Conc 32.6 g/dL (31.5-36.5); Mean Corpuscular Volume 85 fL (80-100); NRBC ABSOLUTE 0.00 K/mm3 (0.00-0.02); NRBC Auto 0.0 /100 WBC (0.0-0.2); Platelet Count 142 K/mm3 (150-400); RDW Coefficient Variation 15.7 % (11.7-14.2); RDW Standard Deviation 48.7 fL (35.1-46.3)
[2025-10-21 09:19] LABS: Anion Gap 3.0 mmol/L (3-11); Blood Urea Nitrogen 11.0 mg/dL (8-24); CO2, Blood 32.0 mmol/L (21-32); Calcium, Blood 8.9 mg/dL (8.5-10.1); Chloride, Blood 103.0 mmol/L (98-108); Creatinine, Blood 0.77 mg/dL (0.60-1.20); Glucose, Blood 145.0 mg/dL (70-99); Potassium, Blood 3.8 mmol/L (3.5-5.5); Sodium, Blood 134.0 mmol/L (136-145)
[2025-10-21 15:42] VITALS: BP 149/80
--- NOTE | 2025-10-21 15:50 | NUR ---
PT HAS HICCUPS THAT SEEM TO BE EXACERBATED BY NAUSEA. EARLIER TODAY THEY DID GO AWAY AFTER HIS PRN REGLAN.
[2025-10-22 03:39] VITALS: BP 156/78
--- NOTE | 2025-10-22 04:19 | NUR ---
35-yr-old, male patient with PMH of class III obesity, lymphedema, A-fib, multiple admissions for sepsis due to cellulitis and schizoaffective disorder was admitted with sepsis. Patient was in bed, awake when received. Denied sob, chest pain, n/v, f/c, dizziness, headache, and pain. Patient reported having an adequate sleep and appetited. Patient was anxious, circumstantial, and euphoric. Patient complied with the scheduled meds and no PRN was given during the shift. Patient's saturation sarted to decreased below 80s and re-assessed the patient. His saturation was 96 @ RA but once, patient started to dozz off, his sat started to get decreased. It occurred multiple times. Because, he already had an order for continuous pulox and had the parameter, the team decided to place oxygen @ 2L via NC. His sat improved to 93-95% @ 2L via NC. Currently, patient is sleeping, no sign of distress and acute changes noted. Call juarez within the reach and hourly round was implemented to prevent falls/injuries.
[2025-10-22] MEDS ORDERED: Fluticasone 0.05% Nasal Spray PRN (05:35)
[2025-10-22 05:47] LABS: BASOPHILS ABSOLUTE AUTO 0.01 K/mm3 (0.00-0.23); BASOPHILS PERCENT AUTO 0 % (0-2); EOSINOPHILS ABSOLUTE AUTO 0.31 K/mm3 (0.00-0.68); EOSINOPHILS PERCENT AUTO 4 % (0-6); Hematocrit 40.5 % (37.0-53.0); Hemoglobin 12.9 g/dL (13.5-17.5); IMMATURE GRAN ABSOLUTE AUTO 0.03 K/mm3 (0.00-0.10); IMMATURE GRAN PERCENT AUTO 0 % (0-1); LYMPHOCYTES ABSOLUTE AUTO 1.61 K/mm3 (0.84-5.20); LYMPHOCYTES PERCENT AUTO 19 % (21-46); MONOCYTES ABSOLUTE AUTO 0.53 K/mm3 (0.16-1.47); MONOCYTES PERCENT AUTO 6 % (4-13); Mean Corpuscular HGB Conc 31.9 g/dL (31.5-36.5); Mean Corpuscular Volume 85 fL (80-100); NEUTROPHILS ABSOLUTE AUTO 5.92 K/mm3 (1.96-9.15); NEUTROPHILS PERCENT AUTO 70 % (41-73); NRBC ABSOLUTE 0.00 K/mm3 (0.00-0.02); NRBC Auto 0.0 /100 WBC (0.0-0.2); Platelet Count 174 K/mm3 (150-400); RDW Coefficient Variation 15.5 % (11.7-14.2); RDW Standard Deviation 47.9 fL (35.1-46.3)
[2025-10-22 06:07] LABS: Anion Gap 7.0 mmol/L (3-11); Blood Urea Nitrogen 10.0 mg/dL (8-24); CO2, Blood 29.0 mmol/L (21-32); Calcium, Blood 8.8 mg/dL (8.5-10.1); Chloride, Blood 103.0 mmol/L (98-108); Creatinine, Blood 0.65 mg/dL (0.60-1.20); Glucose, Blood 101.0 mg/dL (70-99); Potassium, Blood 3.9 mmol/L (3.5-5.5); Sodium, Blood 135.0 mmol/L (136-145)
[2025-10-22 08:20] VITALS: BP 146/66
[2025-10-22] MEDS ORDERED: Miconazole Nitrate 2% 85 GM PWD TOP SCH (09:00)
[2025-10-22 16:02] VITALS: BP 130/89
--- NOTE | 2025-10-22 19:24 | NUR ---
SUMMARY DENISE DENTAL HYGENIST ASSESSED PT AND HAD SPOKEN TO CASE MANAGEMENT REGARDING PT'S LACK OF DENTAL COVERAGE AFFECTING HIS OVERALL HEALTH, POSSIBLY RELATING TO REPEAT HOSPITAL STAYS. NO UPDATES FROM CASE MANAGEMENT TODAY. PT STATES NO ONE FROM CASE MANAGEMENT ROUNDED TODAY. DR. KINNEY ORDERED REPEAT PROCALCITONIN AND LAB IS LOWER. POSSIBLE DC TOMORROW PER DR. KINNEY
[2025-10-22 20:30] VITALS: BP 151/68
--- NOTE | 2025-10-23 03:14 | NUR ---
PT WAS AWAKE WHEN RECEIVED. PATIENT REPORTED HAVING A BETTER SLEEP AND GOOD APPETITE. DENIED SOB, CHEST PAIN, N/V, F/C, DIZZINESS, HEADACHE, PT STATED THAT THE OXYGEN HELPED HIM SLEEP BETTER. PT COMPLIED WITH SCHEDULED MEDS AND NO PRN WAS GIVEN DURING THE SHIFT. PATIENT STATED THAT HE WAS IN "GOOD" MOOD, DENIED ANY DEPRESSION AND ANXIETY, BUT WAS VERY EUPHORIC. ASSISTED PT TO SIT IN RECLINING CHAIR FOR A WHILE AND PT TOLERATED. NO DISTRESS, ACUTE CHANGES, AND BEHAVIORAL ISSUE NOTED DURING THE SHIFT. CALL SAUNDERS WITHIN THE REACH AND HOURLY ROUNDING WAS BEING DOEN TO PREVENT FALLS/INJURIES.
[2025-10-23 03:17] VITALS: BP 145/63
[2025-10-23 08:04] VITALS: BP 145/76
--- NOTE | 2025-10-23 09:37 | NUR ---
Spiritual Care Support Assisted nursing staff by delivering new clothes for the Pt. as he anticipated discharge.
[2025-10-23] MEDS ORDERED: ACET325 PO (11:03)
[2025-10-23] MEDS ORDERED: CEPH500 PO (11:04)
[2025-10-23] MEDS ORDERED: VISBIOME 112.51 EACH PO (11:04)
[2025-10-23 14:26] VITALS: BP 147/71
--- NOTE | 2025-10-23 18:02 | NUR ---
DISCHARGE NOTE PT EDUCATED ON DISCHARGE PACKET AND NEW PRESCRIPTIONS, PT VERBALZIED UNDERSTANDING. UNABLE TO GIVE EVENING IV ANTIBIOTICS DUE TO NEW ADMISISON/PT LOAD, EDUCATED PT TO TAKE EVENING ORAL PROBIOTIC/ANTIBIOTIC DEISYIHJagdish. PT'S COUSIN HAD STOPPED AT [facility] PRIOR TO PICKING HIM UP TO GET HIS PRESCRIPTIONS. LEFT UPPER ARM POWERGLIDE WAS DC'D. PT HAD TO DRESS IN HIS HOME CLOTHING TAHT WERE SLIGHTLY SOILED DUE TO NOT HAVING ON HAND CLOTHES HERE THAT WOULD FIT HIM, [employer] DEVELOPER HAD BROUGHT UP 3X BUT PT IS A 7X. ALL BELONGINGS GATHERED AND SENT HOME WITH PT. ESCORTED DOWN VIA WHEELCHAIR TO VEHICLE. NO NEW CONCERNS PRIOR TO DC.
== END 2025-10-23 18:05 | disposition home or self-care (01) | DRG 872 ==
LOC: ER 10:23 → MEDS 13:52 → ERHOLD 13:52 → MEDS 17:33
PROVIDERS: Emergency Medicine; ADMIT Family Medicine
DX: A41.9 Sepsis, unspecified organism (principal); Z68.45 Body mass index [BMI] 70 or greater, adult; E87.20 Acidosis, unspecified; F84.5 Asperger's syndrome; L03.116 Cellulitis of left lower limb; L03.115 Cellulitis of right lower limb; E87.1 Hypo-osmolality and hyponatremia; F41.0 Panic disorder [episodic paroxysmal anxiety]; F90.9 Attention-deficit hyperactivity disorder, unspecified type; M54.50 Low back pain, unspecified; G89.29 Other chronic pain; F25.9 Schizoaffective disorder, unspecified; I10 Essential (primary) hypertension; I48.0 Paroxysmal atrial fibrillation; I89.0 Lymphedema, not elsewhere classified; K04.7 Periapical abscess without sinus; E66.813 Obesity, class 3; Z88.8 Allergy status to other drugs, medicaments and biological substances; Z23 Encounter for immunization; Z91.0120 Allergy to eggs, unspecified; Z79.01 Long term (current) use of anticoagulants; Z86.59 Personal history of other mental and behavioral disorders; Z79.899 Other long term (current) drug therapy; Z79.2 Long term (current) use of antibiotics; Z98.890 Other specified postprocedural states
CPT/HCPCS: 36415; 71045; 80048; 80053; 83605; 83690; 83735; 84145; 85025; 85027; 86140; 87040; 87637; 93005; 93010; 94762; 96365; 99284-25; A9270; J0690; J7050